=== PATIENT | female | born 1960 | race Caucasian/White ===

== ENCOUNTER 2025-07-14 23:29 | Inpatient (IN) | payer MEDICARE, SELFPAY ==
[2025-07-14 19:02] VITALS: BP 179/82
[2025-07-14 19:29] LABS: Hematocrit 38.5 % (37.0-47.0); Hemoglobin 13.0 g/dL (12.0-16.0); Mean Corp Hgb Conc. 33.8 g/dL (33.0-37.0); Mean Corpuscular Volume 94.8 fL (81.0-99.0); Nucleated Red Blood Cells % 0 %; Platelet Count 225 10^3/uL (130-400); Red Cell Dist. Width 12.0 % (11.5-14.5)
[2025-07-14 19:59] LABS: ALT (SGPT) 20 U/L (0-35); AST (SGOT) 19 U/L (14-36); Albumin 4.0 g/dl (3.5-5.0); Alkaline Phosphatase 79 U/L (38-126); Blood Urea Nitrogen 41 mg/dl (7-17); Calcium 9.3 mg/dl (8.4-10.2); Carbon Dioxide 26 mmol/L (22-30); Chloride 98 mmol/L (98-107); Glucose 520 mg/dl (70-99); Potassium 4.8 mmol/L (3.5-5.1); Sodium 128 mmol/L (135-145); Total Protein 7.1 g/dl (6.3-8.2); eGFR 49.92
--- NOTE | 2025-07-14 20:37 | ED.GENMED ---
History of Present Illness
General
Chief Complaint: Skin Problem
Source: patient
Exam Limitations: none
Time Seen by Provider: 07/14/25 20:19
History of Present Illness
History of Present Illness:
See MDM
Past History
Past History
ED Past Medical History: CVA, HTN, IDDM (hasn't taken insulin during the past 2-3 weeks), Other (s/p amputation of toes on left foot) and Other (orthostatic hypotension, diabetic retinopathy, Syncope, Osteomuyelitis R foot,)
ED Past Surgical History: Cholecystectomy and Orthopedic (left toe's amp)
Social History
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
Alcohol: None
Drug: None
Personal: Single
Living: alone
Employment: Not employed
Family History
Family History: Diabetes and CAD
Phy Exam
Physical Exam
Physical Exam:
See MDM
Course
Orders/Labs/Results
Orders:
Orders
07/14/25 19:06
CR Foot - Right Min 3 Views Urgent
Comment:
Reason For Exam: wound
07/14/25 19:19
Complete Blood Count/With Diff Urgent
Comprehensive Metabolic Panel Urgent
Lactic Acid Urgent
Blood Culture Urgent
CORINA Source: Blood/Venous
Specimen Description:
Date Specimen was Collected: 07/14/25
Time Specimen was Collected: 19:09
07/14/25 20:32
0.9% Sodium Chloride 1000 ml [Nss] 1,000 ml IV BOLUS
Insulin Aspart [NOVOLOG vial] 10 units SC NOW STA
Piperacillin/Tazo 3.375 Gram [Zosyn] 3.375 gram in 50 ml IV NOW
07/14/25 20:36
US Periph Venous LOWER Ext RT Urgent
Comment:
Reason For Exam: R leg swelling and pain
07/14/25 21:12
Vancomycin [Vancocin] 1,500 mg 0.9% Sodium Chloride 500 ml [Nss] 500 ml IV NOW
Abnormal Lab Results
07/14/25
19:19
RBC 4.06 L 10^6/uL
(4.20-5.40)
MCH 32.0 H pg
(27.0-31.0)
MPV 11.2 H fL
(7.4-10.4)
Sodium 128 L mmol/L
(135-145)
BUN 41 H mg/dl
(7-17)
Creatinine 1.2 H mg/dL
(0.6-1.0)
Glucose 520 H* mg/dl
(70-99)
07/14/25 19:19
07/14/25 19:19
Vital Signs
Initial and Last Documented VS:
Initial Vital Signs
Temp Pulse Resp BP Pulse Ox
98.0 F 88 20 179/82 98
07/14/25 19:02 07/14/25 19:02 07/14/25 19:02 07/14/25 19:02 07/14/25 19:02
Last Documented Vital Signs
Temp Pulse Resp BP Pulse Ox
98.0 F 88 20 179/82 98
07/14/25 19:02 07/14/25 19:02 07/14/25 19:02 07/14/25 19:02 07/14/25 20:40
MDM/Problems Addressed
Differential Diagnosis Includes:
Note:
CHIEF COMPLAINT(S)
High blood sugar and leg ulcer.
HISTORY OF PRESENT ILLNESS
The patient is a 64-year-old female with a history of diabetes, presenting with notably high blood sugar (reported at 520 mg/dL) and a foot ulcer, suspected to be a diabetic ulcer. The patient discontinued insulin treatment last year due to
dissatisfaction with previous medical management and has not been on any diabetic medication since. She reports that the ulcer appears infected and has a distinct odor. The patient noted that she urinated frequently, attributing this to her existing
kidney disease. However, her frequent urination is likely linked to the elevated blood glucose. The patients daughter is involved in her care as a wound care nurse.
The patient expresses frustration with managing her diabetes, citing inadequate outpatient follow-up due to the absence of a primary care provider. She verbalized a preference against taking pain or any additional medication. The leg ulcer is not
currently causing pain, but it did previously before being bandaged.
The patient reported eating before the visit and experiences dehydration symptoms, which are consistent with polyuria due to hyperglycemia. Because the ulcers condition is concerning, diagnostic imaging was recommended for further evaluation,
including an X-ray to check for osteomyelitis and an ultrasound to assess for deep vein thrombosis due to observed leg swelling.
PAST MEDICAL AND SURGICAL HISTORY
Diabetes; previously managed with insulin. History of kidney disease.
CHRONIC MEDICAL CONDITIONS SIGNIFICANTLY AFFECTING CARE
Chronic conditions affecting care: Diabetes, Kidney disease.
PHYSICAL EXAM
General: Alert, no acute distress.
Skin: Warm, dry.
Head: Normocephalic, atraumatic
Neck: Appears supple, trachea midline.
Eyes, Ears, Nose, Mouth, and Throat: Dry mucous membranes
Cardiovascular: No signs of cyanosis
Respiratory: Respirations are non-labored.
Abdomen: Non-distended
Musculoskeletal: Mild edema to right calf without erythema. Right with prior inflammatory skin removed. Ulceration noted to the distal stump with mild surrounding erythema and malodor
Neurological: No focal neurological deficit observed.
Psychiatric: Cooperative, appropriate mood and affect.
PLAN
- Perform X-ray to assess for underlying bone infection (osteomyelitis).
- Conduct ultrasound to exclude deep vein thrombosis.
- Administer fluids for dehydration.
- Start intravenous antibiotics for suspected infection.
- Administer a subcutaneous dose of insulin to reduce blood glucose level.
SUMMARY OF ENCOUNTER
The patient presented with significantly elevated blood glucose and a suspected diabetic ulcer. Due to ongoing challenges in diabetes management stemming from previous inadequate outpatient follow-up and lack of primary care, the patient stopped
insulin therapy. In the emergency department, imaging and treatment for dehydration and infection were initiated. The plan aimed to stabilize acute hyperglycemia and start preliminaries for responsible ulcer management.
DISPOSITION
Recommendation for inpatient admission to initiate comprehensive diabetic management, including glucose monitoring, insulin therapy optimization, access to necessary diabetic supplies, and consultation with podiatry as needed. The patient was
advised that outpatient discharge could jeopardize ulcer healing and further compromise diabetic control.
EMERGENCY TREATMENTS ADMINISTERED
Subcutaneous insulin was offered for management of hyperglycemia.
MEDICAL DECISION MAKING
- Complexity of Data Reviewed: Chronic conditions affecting care include diabetes and kidney disease.
- Data:
- Category 1:
- X-ray ordered to assess for osteomyelitis.
- Ultrasound ordered to exclude deep vein thrombosis.
- Subcutaneous insulin to manage hyperglycemia.
- Category 2:
- Input from patient�s daughter, who assists with wound care.
- Category 3:
- Discussion included potential inpatient management for optimal diabetic control and wound management.
-Risk:
Prescription medication management and therapy (subcutaneous insulin) initiated requiring monitoring for adjustment and efficacy.
DIAGNOSIS
- Hyperglycemia, much elevated, long-term insulin dependent E11.65
- Diabetic ulcer of the leg, unspecified E11.622
- Chronic kidney disease, unspecified N18.9
SUMMARY OF ENCOUNTER
The patient, a 64-year-old female with a known history of diabetes and chronic kidney disease, presented to the emergency department with an infected leg ulcer and significantly elevated blood sugar levels. The ulcer was suspected to be a diabetic
ulcer, and the patient had not been on any diabetic medication since discontinuing insulin the previous year. In the emergency department, imaging was conducted to assess the potential for concurrent complications associated with the ulcer. An X-ray
was performed, showing no evidence of osteomyelitis. An ultrasound was conducted to assess for deep vein thrombosis, which returned negative. Due to the concerning nature of the ulcer, IV antibiotics were initiated alongside rehydration efforts and
administration of subcutaneous insulin to manage the patients hyperglycemia.
DISPOSITION
Recommendation for inpatient admission to enhance comprehensive diabetic management, optimize glucose monitoring, resume insulin therapy, and provide access to essential diabetic supplies and consult with a parking ramp attendant for ulcer management.
ASSESSMENT
The patients leg ulcer is suspected to be a diabetic ulcer potentially exacerbated by uncontrolled blood sugar levels. Current imaging rules out osteomyelitis and deep vein thrombosis, but the infection requires antibiotic treatment and careful
wound care management.
EMERGENCY TREATMENTS ADMINISTERED
Intravenous antibiotics were initiated for ulcer infection and a subcutaneous dose of insulin was administered to decrease elevated blood glucose levels.
PLAN
The plan includes admission for comprehensive diabetic management, administration of intravenous antibiotics, wound care consultation, and continued evaluation of the diabetic ulcers progress. Ensuring the patient receives adequate diabetes
education and access to necessary supplies is also part of the management strategy.
INDEPENDENT REVIEW OF LABS AND INTERPRETATION OF TESTS
- My independent interpretation of the X-ray indicates no evidence of osteomyelitis.
- My independent interpretation of the ultrasound shows a negative result for deep vein thrombosis.
PATIENT EDUCATION AND COUNSELING
The patient was educated on the importance of maintaining blood glucose levels and the role of diabetes in complicating healing of ulcers. Discussed the necessity of consistent follow-up and management of diabetes for long-term health, as well as
wound care techniques to support ulcer healing.
MEDICATION RECONCILIATION
Initiated intravenous antibiotics for infection management and administered a subcutaneous dose of insulin for hyperglycemia.
MEDICAL DECISION MAKING
-Number and Complexity of Problems Addressed: Chronic conditions affecting care include diabetes and kidney disease. The differential diagnosis considered was diabetic foot ulcer complicated by potential osteomyelitis and/or deep vein thrombosis,
both of which were ruled out by imaging.
-Data:
- Category 1:
- X-ray was ordered and independently interpreted to assess for osteomyelitis.
- Ultrasound was ordered and independently interpreted to exclude deep vein thrombosis.
- Category 2:
- Input from the patients daughter, a wound care nurse, was considered in planning the appropriate care.
- Category 3:
- Discussion of potential inpatient management for optimal control of the patients diabetes and wound care considerations.
-Risk: Prescription medication management was initiated and requires monitoring to adjust therapy suitably and assess treatment efficacy. Given the patients current health status and comorbid conditions, decisions regarding diagnostic testing and
treatment strategies have been made with attention to potential risks and benefits.
DIAGNOSIS
- Hyperglycemia, long-term insulin dependent (ICD-10: E11.65)
- Diabetic ulcer of the leg, unspecified (ICD-10: E11.622)
- Chronic kidney disease, unspecified (ICD-10: N18.9)
*Pulse Oximetry
SaO2: 98
Oxygen Mode of Delivery: Room air
Patient hypoxic: no
*Critical Care Note
Total Time (30-74mins, 75-104mins- exclusive of procedures): Not Applicable
ED Attending Note
-
Portions of this chart may have been created with voice recognition software.� Occasional wrong word or��sound alike� substitutions may have occurred due to the inherent limitations of voice recognition software.
Discharge Plan
Departure
Patient Disposition: Admit
Date of Disposition: 07/14/25
Time of Disposition: 22:48
Admit to: Med/Surg
Presentation/result/management discussed w/ accepting MD/DO: Hospitalist
Discharge Problem:
Diabetic foot ulcer, Acute hyperglycemia
Prescriptions:
No Action
lisinopril 2.5 MG tablet
2.5 mg PO DAILY@1600
insulin aspart U-100 [Novolog U-100 Insulin aspart] 1,000 UNITS/10 ML solution
0 units SC .SLIDING SCALE
Patient Comments:
11/23/17 with meals and a snack as needed
coenzyme F05-oqdaohb E [Co Q-10 (with Vit E)] 1 EACH capsule
1 ea PO DAILY@1600
ascorbic qlya-wkfixzao-ofu [Emergen-C] 1,000 MG powder effervescent in packet
1,000 mg PO DAILY
C,E,copper,zinc 63-ab0-ctr-landon 1 CAP capsule
1 cap PO DAILY
insulin aspart U-100 [Novolog FlexPen U-100 Insulin] 300 UNITS/3 ML insulin pen
5 units SC AC 0RF
Lactobac 2-Bifido 1-S. therm [High Potency Probiotic] 1 CAP capsule
1 cap PO DAILY 0RF
amoxicillin-pot clavulanate 1 TABLET tablet
1 tab PO Q12 Qty: 10 0RF
insulin glargine [Lantus U-100 Insulin] 100 UNITS/1 ML solution
12 units SC HS Qty: 0 0RF
Eliquis 5 mg tablet
10 mg PO DAILY Qty: 30 0RF
Rx Instructions:
Take 10mg BID for 7 days then followed by 5mg BID
Referrals:
NONE,* [Family Provider, Internal Medicine]
Interventions
Interventions:
*Risk Screen - Suicide Last Done: 07/14/25 20:32
*General Assessment Last Done: 07/14/25 19:02
*Neglect/Abuse Screening Last Done: 07/14/25 20:32
*ED- Fall Risk Assessment Last Done: 07/14/25 20:32
*ED COVID-19 Vaccine History Last Done: 07/14/25 20:32
*ED Influenza Vaccine History Last Done: 07/14/25 20:32
ED-Skin Assessment Last Done: 07/14/25 20:26
Discharge Date and Time
Print Language: MOSOTHO
[2025-07-14] MEDS: NSS 1000 IV (20:55)
[2025-07-14] MEDS: ZOSYN 50 IV (20:55)
[2025-07-14] MEDS: NOVOLOG vial 10 UNITS SC (20:56)
[2025-07-14] MEDS: VANCOCIN 530 MG IV (22:03)
--- NOTE | 2025-07-14 22:40 | HPS.HSE ---
Family Physician
-
Family Physician: * NONE
Chief Complaint
-
right foot wound
History of Present Illness
64-year-old female with a history of diabetes, CVA, CKD presenting with right foot ulcer which she noted few days ago. patient stated worsening redness and LE edema which prompted her to come to the ER. patient stopped taking insulin and all her
medication last year. she controlling her blood sugar with diet. She reports that the ulcer appears infected and has a distinct odor. She has also has a wound on her left lower extremity Rodríguez. patient sated chronic stress incontinence. denied HILARIO,
dizzy or syncope. Patient denied any fever, chills, cough, congestion. Patient denied chest pain or short of breath. Patient denied abdominal pain, nausea, vomiting or diarrhea. Patient denied dysuria hematuria.
Upon arrival she was noted to have elevated blood sugar. Patient received 10 units of NovoLog. Patient received normal saline, Zosyn and Vanco in the ER. Admitting for further
Medical History
Past Medical History
Past Medical History: Reports Other
Additional Past Medical History:
Type 2 diabetes, CKD, venous insufficiency, posttraumatic stress disorder, CVA,
Past Surgical History: Reports Other
Additional Past Surgical History:
Bilateral partial foot amputation, cholecystectomy
Social History
Tobacco: Former Smoker
Alcohol: None
Drug: None
Living: Alone
Family History
Family History: Not pertinent
Allergies / Home Medications
Allergies reflects when Allergies were last updated in [facility].
Home Medications with original date entered in [facility]
Allergy/Medication List:
Allergies
Allergy/AdvReac Type Severity Reaction Status Date / Time
latex Allergy Rash/SENSIT Verified 07/14/25 19:02
IVITY
Home Medications
lisinopril 2.5 mg tablet 2.5 mg PO DAILY@1600 07/01/16
ascorbic acid 1,000 gs-uqmdpryvierc-dbxnxvil powder effervescent pack (Emergen-C) 1,000 mg PO DAILY 11/23/17
coenzyme X01-btwfxzu E 100 mg-5 unit capsule (Co Q-10 (with Vit E)) 1 ea PO DAILY@1600 11/23/17
insulin aspart U-100 100 unit/mL subcutaneous solution (Novolog U-100 Insulin aspart) 0 units SC .SLIDING SCALE 11/23/17
vit C,E,copper,zinc-omega3 250 mg-lutein 5 mg-zeaxanthin 1 mg capsule 1 cap PO DAILY 12/07/17
Lactobac no.2-Bifidobac no.1-S. thermo 112.5 billion cell capsule (High Potency Probiotic) 1 cap PO DAILY 12/14/17
amoxicillin 875 mg-potassium clavulanate 125 mg tablet 1 tab PO Q12 #10 tabs 12/14/17
insulin aspart U-100 100 unit/mL (3 mL) subcutaneous pen (Novolog FlexPen U-100 Insulin aspart) 5 units (0.05 mL) SC AC 12/14/17
insulin glargine 100 unit/mL subcutaneous solution (Lantus U-100 Insulin) 12 units (0.12 mL) SC HS ##0 12/14/17
apixaban 5 mg tablet (Eliquis) 10 mg (2 x 5 mg) PO DAILY #30 tabs 08/29/22
Review of Systems
-
Constitutional: Reports No Symptoms
EENT: Reports No Symptoms
Respiratory: Reports No Symptoms
Cardiac: Reports No Symptoms
Abdomen/GI: Reports No Symptoms
: Reports No Symptoms
Musculoskeletal: Reports No Symptoms
Skin: Reports Other
Neurological: Reports No Symptoms
Endocrine: Reports No Symptoms
Hematologic/Lymphatic: Reports No Symptoms
Psych: Reports No Symptoms
Physical Exam
Vital Signs
Vital Signs
Temp Pulse Resp BP Pulse Ox
98.0 F 88 20 179/82 98
07/14/25 19:02 07/14/25 19:02 07/14/25 19:02 07/14/25 19:02 07/14/25 20:40
Physical Exam
General: Well Developed, Well Nourished and No Apparent Distress
HEENT: NormoCephalic, Moist mucous membranes and Atraumatic
Respiratory: Clear
Cardiac: S1/S2 and Regular Rhythm; No Murmur or Rub
GI: Soft, Non Tender, Non Distended and Normal Bowel Sounds; No Organomegaly
Rectal: Deferred by Provider
Musculoskeletal: No Clubbing, No Cyanosis and No Edema
Skin: Rash and Other (Mild edema to right calf without erythema. Right with prior inflammatory skin removed. Ulceration noted to the distal stump with mild surrounding erythema and malodor)
Neuro: AO x 3 and Nonfocal/grossly intact
Psych: Calm
Laboratory Results
-
07/14/25 19:19
07/14/25 19:19
Laboratory Results
Lactic Acid 1.2 mmol/L (0.7-2.0) 07/14/25 19:19
Total Bilirubin 0.5 mg/dl (0.2-1.3) 07/14/25 19:19
AST 19 U/L (14-36) 07/14/25 19:19
ALT 20 U/L (0-35) 07/14/25 19:19
Alkaline Phosphatase 79 U/L (38-126) 07/14/25 19:19
Data Reviewed
-
Diagnostic Radiology: Report Reviewed by me
Lab Data: Labs Reviewed by me
Impression/Plan
-
# Type 2 diabetes with hyperglycemia
- Blood sugar in 500
- Patient received 10 units of NovoLog in the ER
- Will initiate patient on Lantus
- Sliding scale
- Diabetic DRUM DRIER consulted
# Right foot ulcer/left lower extremities wound
#hxt of bilateral foot amputation/osteomyelitis.
- Ultrasound negative for DVT
- Foot x-ray with no acute finding
- Obtain MRI of the right foot
- IV Vanco and Zosyn continue
- Podiatric consulted
-wound care consulted
# Pseudohyponatremia
- Corrected sodium is 138
# CKD stage IIIb
- Creatinine 1.2
- Continue to monitor
# History of DVT
#hxt of CVA
#hxt of depression/PTSD
-psych consulted
# DVT prophylaxis
- Heparin subcu
# CODE STATUS
- Full code
--- NOTE | 2025-07-14 22:41 | W.PN.UPDATE ---
Update Note
Progress Note Update
This note serves as an addendum to the H&P by continuous miner operator Sarthak MORRIS�
HPI�
64F HX IDDM ( Non compliance with insulin) diabetic retinopathy, PAD, s/p Lt foot TMT amputation ( 2018) orthostatic hypotension, syncope, Rt foot OM seen at ER:
- pain in the R foot especially ball of the foot
- POS redness and increased swelling
- new wound reported to the foot
At ER:
BG 590s
Initiated Vanco and Zosyn
BCx sent
Relevant VS
07/14/25
19:02
Temp 98.0 F
Temp route: Oral
Pulse 88
Resp Rate 20
Blood pressure 179/82
SaO2 98
Oxygen Mode of Delivery Room air
PE
Gen: not toxic
HEENT: anicteric
Neck: supple
Cor: RR
INSTRUMENTATION MANAGER: AAO3
MS: B/l foot TMTs , Rt fore foot ulcer
Psych: emotional and teary at times
Relevant Data
03/20/23 07/14/25
11:16 19:19
WBC 7.1
Hgb 13.1 13.0
Plt Count 225
07/14/25
19:19
Sodium 128 L( corrected Na 135 for BG 520)
Potassium 4.8
Chloride 98
Carbon Dioxide 26
BUN 41 H
Creatinine 1.2 H
eGFR 49.92
Glucose 520 H*
XR R Foot
- In comparison to prior study, the patient is again noted to be status post amputation at the base of the metatarsals throughout, predominantly smooth appearance at the amputation sites with some spurring noted at several levels.
- Degenerative changes throughout the tarsal region.
- There is no discrete focal cortical bony destructive process.
- Some mild predominantly diffuse soft tissue swelling is noted.
Rt David US
- No evidence of deep venous thrombosis of the right lower extremity.
Last hospitalist admission:
ASSESSMENT & PLAN
Pending Rx reconciliation: report not taking any meds
Rt diabetic neuro pathic foot infection
- s/p Lt foot TMT amputee
- open wound / ulcers at R foot x 3
- NEG XR evidence of discrete focal cortical bony destructive process
- NEG US for DVT
- CRP and ESR
- BCx sent
- MRI R foot
- s/p empiric Vanco and Zosyn
- MRI of Rt foot
- Pharmacy Informatics Specialist consulted
Uncontrol IDDM
- Non adherence to Insulin
- Resume Lantus 12 HS
- add ISS mod dose
- FU A1C
Non adherence to Medications
Associated situational depression
Occasional thinking of better of not living but denitd current suicidal ideation
HX PTSD
- Psych consult
HX CKD - uncertain stage
- Trend Cr
HX DVT treated with Eliquis in the past
DVT Px: SQH
Full code
IP MS
[2025-07-14 23:42] LABS: C-Reactive Protein < 5.00 mg/L (0.0-10.00)
[2025-07-15 00:50] VITALS: BP 154/120; BMI 30.7
[2025-07-15 01:00] VITALS: BP 170/74
--- NOTE | 2025-07-15 01:26 | PTCARENOTE ---
Pt arrived from ED by stretcher. Able to ambulate to hospital bed and bedside commode with a walker. Alert and oriented x 3. Vitals were taken, BP 154/120. Manual BP was a taken, 170/74. House Provider TT and made aware. Call salazar within reach. Will
monitor.
[2025-07-15] MEDS: ZOSYN 50 IV ×4 (04:11→22:29)
[2025-07-15] MEDS: TYLENOL 650 MG PO ×2 (05:02→20:20)
[2025-07-15 07:00] VITALS: BP 121/57
[2025-07-15 07:35] LABS: Hematocrit 33.3 % (37.0-47.0); Hemoglobin 11.2 g/dL (12.0-16.0); Mean Corp Hgb Conc. 33.6 g/dL (33.0-37.0); Mean Corpuscular Volume 92.0 fL (81.0-99.0); Platelet Count 194 10^3/uL (130-400); Red Cell Dist. Width 12.3 % (11.5-14.5)
[2025-07-15 07:40] LABS: Glucose - Point of Care 226 mg/dl (70-99)
[2025-07-15 07:58] LABS: Blood Urea Nitrogen 35 mg/dl (7-17); Calcium 8.6 mg/dl (8.4-10.2); Carbon Dioxide 23 mmol/L (22-30); Chloride 107 mmol/L (98-107); Estimated Creatinine Clearance 51 ml/min; Glucose 239 mg/dl (70-99); Potassium 4.4 mmol/L (3.5-5.1); Sodium 136 mmol/L (135-145); eGFR 49.92
--- NOTE | 2025-07-15 08:02 | PHA.VAN.IN ---
Assessment
- Assessment
Renal Function: Appears similar to baseline (1.2)
Maximum Temperature: 101.1
Minimum Temperature: 97.9
Concomitant Antimicrobials: piperacillin/tazobactam
- Previous Dosing Experience
Previous Regimen: vancomycin 1000 mg Q24H
Date of Regimen: 12/07/17
Provided Trough of: 13
Patient's SCR is: Similar to previous dosing experience
Patient's weight is: Decreased compared to previous dosing experience (128 kg (12.09.2017))
Plan
- Plan
Initial / Loading Dose: vancomycin 1500 mg x 1
Maintenance Regimen: dose by level vancomycin 1250 mg x 1 on 07.15.25
Monitoring: random level ordered for 07.16 @ 0600
MRSA Screen: Ordered per protocol
Pharmacokinetics Vancomycin I
- -
Patient Age: 64
Patient Sex: Female
Vancomycin Day #: 2
Indication: Skin And Soft Tissue
Requesting Provider: Dr. Radha Julien
Pertinent Antimicrobial Allergies:
latex
Height / Weight:
Height 5 ft 6 in
Actual Weight 86.183 kg
IBW in k.3
Adjusted BW in k.1
Pertinent Past Medical History: right foot wound
- Vital Signs / Lab Results
Temp Pulse Resp BP Pulse Ox
101.1 F H 87 87 170/74 97
07/15/25 05:00 07/15/25 00:50 07/15/25 00:50 07/15/25 01:00 07/15/25 00:50
Lab Results - Hematology
07/14/25 07/15/25
19:19 06:48
WBC 7.1 10.2
Lab Results - Chemistry
07/14/25 07/15/25
19:19 06:48
BUN 41 H 35 H
Creatinine 1.2 H 1.2 H
Estimated Creat Clear 51
Albumin 4.0
07/14/25
19:19
Lactic Acid 1.2
[2025-07-15] MEDS: HEPARIN 5000 UNITS SC ×2 (08:38→20:19)
[2025-07-15] MEDS: NOVOLOG FLEXPEN-MODERATE RESISTANCE 3 UNITS SC (08:38)
[2025-07-15] MEDS: VANCOCIN 275 MG IV (08:39)
[2025-07-15 09:40] LABS: Glycohemoglobin (HgbA1c) 14.6 % (4.0-5.9)
[2025-07-15 11:50] LABS: Glucose - Point of Care 351 mg/dl (70-99)
--- NOTE | 2025-07-15 12:24 | W.PN.UPDATE ---
Addendum entered and electronically signed by Obey Witt DPM 07/15/25 12:35:
64F presents with diabetic foot wounds to subq, no acute clinical signs of infection
- wbat
- no abx
- elevate b/l LE when at rest, with heels in floating position
- LWC rendered betadine dsd
- recommend wound care every other day betadine dsd RLE
- discussed with patience of following health care recommendations and compliance with medications
- podiatry will sign off at this time
Original Note:
Update Note
Progress Note Update
64F presents with diabetic foot wounds to subq, no acute clinical signs of infection
- wbat
- no abx
- elevate b/l LE when at rest, with heels in floating position
- LWC rendered betadine dsd
- recommend wound care every other day betadine dsd RLE
- podiatry will sign off at this time
[2025-07-15] MEDS: NOVOLOG FLEXPEN-MODERATE RESISTANCE 9 UNITS SC ×2 (12:27→16:36)
--- NOTE | 2025-07-15 14:07 | CM ---
Initial assessment completed with patient who lives alone in a 2nd floor apartment in a 2 story house plus basement, 13 steps to enter apartment. 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 Uses a RW when out of the home. Furniture surfs
in the home. No other DME. No in-home services. No HC-POA. No VA benefits. No psychiatric hospitalizations in past 2 years. Did have one in 1987 for PTSD and eating disorder. Does not have a PCP. When asked who manages her IDDM. She said she
tries to do holistic methods. Pharmacy is [facility] on [address] in [place]. Discharge POC: TBD.
--- NOTE | 2025-07-15 14:10 | W.PN.HOSP.TC ---
Today's Communication/Plan
-
Assessment / Plan
Assessment / Plan
NAD
Scleral Anicteric
MMM
No JVD
CTABL
RRR, S1/S2
Soft, NT, ND, BS+
Warm, Dry
Bilateral lower extremity TMA's
-Right foot dressed
AAOx3
Right foot distal TMA ulcer secondary to noncompliant diabetes type 2
MRI right lower extremity though ESR/crp low therfore, less likely osteo
IV fluids
IV Atb
Insulin long and short
Tight sugar control
Pod consult
DMII uncontrolled, noncomplaint
a1c
ssi
long and short acting insulin
bg 140-180
diabetes consult
ccdiet
microalbuminuria
-will start acei low dose
ckd stage 3a
start renoprotective acei low dose
monitor uop
Anticipated Discharge: 24 - 48 hours
Subjective/Interval History
-
Date of Service: July 15, 2025
Seen and examined. No new complaints. No acute overnight events.
Objective Data
-
Labs:
Laboratory Results
07/15/25
06:48
WBC 10.2
Hgb 11.2 L
Hct 33.3 L
Plt Count 194
Sodium 136 D
Potassium 4.4
Chloride 107
Carbon Dioxide 23
BUN 35 H
Creatinine 1.2 H
Glucose 239 H
Calcium 8.6
Vital Signs:
Vital Signs
Temp Pulse Resp BP Pulse Ox
97.6 F 91 16 121/57 95
07/15/25 10:20 07/15/25 07:00 07/15/25 07:00 07/15/25 07:00 07/15/25 07:00
--- NOTE | 2025-07-15 14:36 | PTCARENOTE ---
Pt with ble metatarsal amputations. She lives independently at baseline and states she uses furniture and walker without any recent falls . I watched her get around at the room with IV pole, to bedside commode, bed and chair. I did ask her to call
for staff to assist her. I educated her on importance of fall precautions and having one assist while in hospital only. and she still does not call. I did put a bed alarm on her bed and explained it was more for us to be alerted quicker to assist
her. she understood and verbally contracted to call for nurses first. Pt explained to me that she went off her DM management because she just needed a mental break. she was burnt out. She was lookingforward to her hga1c results hoping it would
show good numbers despite her BS from er. I did tell her it was > 14 she was not happy with this number but she faced it and did verbalize to me she is looking forward to getting her next hga1c down. she is also looking forward to taking better
care of her self and diabetic management
[2025-07-15 15:10] VITALS: BP 133/52
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
[2025-07-15 16:33] LABS: Glucose - Point of Care 391 mg/dl (70-99)
[2025-07-15] MEDS: ZESTRIL 2.5 MG PO (16:36)
[2025-07-15] MEDS: NOVOLOG FLEXPEN 5 UNITS SC (16:37)
[2025-07-15 21:22] LABS: Glucose - Point of Care 289 mg/dl (70-99)
[2025-07-15] MEDS: LANTUS 0.12 UNITS SC (22:29)
[2025-07-15 23:19] VITALS: BP 145/65
[2025-07-16] MEDS: ZOSYN 50 IV ×2 (03:49→09:39)
[2025-07-16 07:00] VITALS: BP 174/85
[2025-07-16 07:48] LABS: Glucose - Point of Care 210 mg/dl (70-99)
[2025-07-16 08:29] LABS: Hematocrit 36.5 % (37.0-47.0); Hemoglobin 12.5 g/dL (12.0-16.0); Mean Corp Hgb Conc. 34.2 g/dL (33.0-37.0); Mean Corpuscular Volume 93.8 fL (81.0-99.0); Platelet Count 212 10^3/uL (130-400); Red Cell Dist. Width 12.6 % (11.5-14.5)
[2025-07-16 08:53] LABS: Blood Urea Nitrogen 30 mg/dl (7-17); Calcium 9.1 mg/dl (8.4-10.2); Carbon Dioxide 26 mmol/L (22-30); Chloride 108 mmol/L (98-107); Estimated Creatinine Clearance 47 ml/min; Glucose 233 mg/dl (70-99); Potassium 4.5 mmol/L (3.5-5.1); Sodium 138 mmol/L (135-145); eGFR 45.35
[2025-07-16] MEDS: ZESTRIL 2.5 MG PO (09:38)
[2025-07-16] MEDS: NOVOLOG FLEXPEN-MODERATE RESISTANCE 3 UNITS SC (09:39)
[2025-07-16] MEDS: HEPARIN 5000 UNITS SC ×2 (09:39→22:04)
[2025-07-16] MEDS: NOVOLOG FLEXPEN 5 UNITS SC ×3 (09:41→17:38)
--- NOTE | 2025-07-16 11:35 | W.PN.HOSP.TC ---
Today's Communication/Plan
-
Wound care
Diabetes consultants
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
Assessment / Plan
Assessment / Plan
NAD
Scleral Anicteric
MMM
No JVD
CTABL
RRR, S1/S2
Soft, NT, ND, BS+
Warm, Dry
Bilateral lower extremity TMA's
-Right foot dressed
AAOx3
Right foot distal TMA ulcer secondary to noncompliant diabetes type 2
ESR/CRP low therefore low pretest probability for osteo
MRI right lower extremity without evidence of osteo
IV fluids
IV Atb will discontinue
Insulin long and short
Tight sugar control
Pod no indication for surgical involvement
Wound care consult
DMII uncontrolled, noncomplaint
a1c
ssi
increased Lantus started standing lispro
bg 140-180
diabetes consult
ccdiet
microalbuminuria
-will start acei low dose, can titrate up as tolerated
ckd stage 3a
start renoprotective acei low dose
monitor uop
Anticipated Discharge: Within 24 hours
Subjective/Interval History
-
Date of Service: July 16, 2025
Seen and examined. No new complaints. No acute overnight events.
Objective Data
-
Labs:
Laboratory Results
07/16/25
07:48
WBC 5.8
Hgb 12.5
Hct 36.5 L
Plt Count 212
Sodium 138
Potassium 4.5
Chloride 108 H
Carbon Dioxide 26
BUN 30 H
Creatinine 1.3 H
Glucose 233 H
Calcium 9.1
Vital Signs:
Vital Signs
Temp Pulse Resp BP Pulse Ox
98.4 F 76 18 174/85 95
07/16/25 07:00 07/16/25 07:00 07/16/25 07:00 07/16/25 07:00 07/16/25 07:00
[2025-07-16 11:50] VITALS: BP 169/81; PULSE 75; O2SAT 98
[2025-07-16 12:15] LABS: Glucose - Point of Care 284 mg/dl (70-99)
[2025-07-16 12:44] VITALS: BP 169/81; PULSE 75; O2SAT 98
[2025-07-16] MEDS: NOVOLOG FLEXPEN-MODERATE RESISTANCE 5 UNITS SC (12:46)
[2025-07-16 12:55] VITALS: BP 175/81
[2025-07-16] MEDS: ZESTRIL 5 MG PO (14:51)
[2025-07-16 15:00] VITALS: BP 105/65
--- NOTE | 2025-07-16 16:39 | PTCARENOTE ---
PT oob ambulating in hallways with one assist walker. PT independently ambulating in room on and off bedside commode with walker and has sneakers on. Pt steady. SBP > 170 x2 even with lisinopril. MD made aware and x dose ordered and given. BP now
improved. Pt in good spirits asking how she can incorporate alternative styles of medicine with MD prescriptions. She specifically wanted my opinion on how taking beet tablets would assist with her BP. I explained she should always follow
recommendations by her medical doctor and ensure compatibility. After she partners with her primary care doctor and oks her alternative therapy she could get a home BP machine, log her BPs and activities and share outcomes with her medical doctor
so that together they could make decisions. She agreed it is tong to partner with her physicians to incorporate alternative types of medicinal therapies. PT watching [place] game and enjoying her self
[2025-07-16 16:50] LABS: Glucose - Point of Care 159 mg/dl (70-99)
[2025-07-16] MEDS: NOVOLOG FLEXPEN-MODERATE RESISTANCE 1 UNITS SC (17:38)
[2025-07-16 21:50] LABS: Glucose - Point of Care 190 mg/dl (70-99)
[2025-07-16] MEDS: LANTUS 0.15 UNITS SC (22:05)
[2025-07-16] MEDS: TYLENOL 650 MG PO (22:17)
[2025-07-16 23:10] VITALS: BP 143/68
[2025-07-17 06:00] VITALS: BMI 31.2
[2025-07-17 06:54] LABS: Hematocrit 34.9 % (37.0-47.0); Hemoglobin 11.5 g/dL (12.0-16.0); Mean Corp Hgb Conc. 33.0 g/dL (33.0-37.0); Mean Corpuscular Volume 96.1 fL (81.0-99.0); Platelet Count 193 10^3/uL (130-400); Red Cell Dist. Width 12.6 % (11.5-14.5)
[2025-07-17 07:00] VITALS: BP 166/75
[2025-07-17 07:12] LABS: Blood Urea Nitrogen 32 mg/dl (7-17); Calcium 8.8 mg/dl (8.4-10.2); Carbon Dioxide 25 mmol/L (22-30); Chloride 110 mmol/L (98-107); Estimated Creatinine Clearance 62 ml/min; Glucose 166 mg/dl (70-99); Potassium 4.3 mmol/L (3.5-5.1); Sodium 134 mmol/L (135-145); eGFR > 60.00
--- NOTE | 2025-07-17 07:21 | PN.DE.MGMTRT ---
Addendum entered and electronically signed by NATHANIEL Sherwood 07/17/25 13:21:
Pre-lunch glucose is 277, pt received NovoLog 8 units with breakfast.
Will increase NovoLog to 10 units AC.
Original Note:
Insulin Management
- -
07/17/2025: Diabetes Management Consult
64 year old female who presented with a right foot ulcer. States she controlling her blood sugar with diet.
She reports that the ulcer appears infected and has a distinct odor. She has also has a wound on her left lower extremity Rodríguez
PMH: CVA, CKD and T2DM. Patient states she stopped taking insulin and all her medication last year.
Upon arrival she was noted for elevated glucose with a blood sugar of 520 venous. A1C 14.6%, Cr 1.0, eGFR >60.
She was started on Lantus and AC NovoLog.
Pt awake, alert, oriented, sitting up in bed, able to discuss diabetes care plan.
States she stopped taking her insulin last year in March, thought she would control her diabetes with diet
Had been taking Lantus 12-20 units @ HS and NovoLog 20-25 units with meals depending on what she ate.
States she has a glucose meter but does not remember if she still has it. Will send Rx to her pharmacy
07/16 glucose range was 159 to 284, required 1-3 units of corrective insulin
Will increase NovoLog to 8 units, 1st dose now.
HS glucose was 190, received Lantus 15 units, fasting 166 V, 162 POC.
Will cont current dose of Lantus and low corrective with meals.
Change diet from 2200 leyla to 1800 leyla
Discussed with Nurse. Will cont to follow
Diabetes History
- -
Type of Diabetes: 2 requiring insulin
Pre-Admission Diabetes Regimen
07/16/25 07/17/25
07:48 06:29
Creatinine 1.3 H 1.0
Lab Results
Hemoglobin A1c 14.6 % (4.0-5.9) H 10/25/25 06:48
Insulin Pump Settings
IP Diabetes Regimen
07/16/25 07/16/25 07/16/25
07:46 07:48 12:14
Glucose 233 H
POC Glucose 210 H 284 H
07/16/25 07/16/25 07/17/25
16:49 21:48 06:29
Glucose 166 H
POC Glucose 159 H 190 H
Meal type: Dinner
Meal type: Lunch
Meal type: Breakfast
Amount consumed: 100%
Amount consumed: 100%
Amount consumed: 100%
Patient Education
[2025-07-17 07:45] LABS: Glucose - Point of Care 162 mg/dl (70-99)
[2025-07-17] MEDS: HEPARIN 5000 UNITS SC ×2 (07:50→21:41)
[2025-07-17] MEDS: ZESTRIL 10 MG PO (07:51)
[2025-07-17 09:54] LABS: Glucose - Point of Care 166 mg/dl (70-99)
[2025-07-17] MEDS: NOVOLOG FLEXPEN 8 UNITS SC (10:02)
[2025-07-17] MEDS: NOVOLOG FLEXPEN-MODERATE RESISTANCE 1 UNITS SC (10:03)
--- NOTE | 2025-07-17 10:57 | W.PN.HOSP.TC ---
Today's Communication/Plan
-
see A/P
Assessment / Plan
Assessment / Plan
A/P:
# Right foot distal TMA ulcer/ superficial abrasion
CRP negative which essentially rules out active infection
MRI right lower extremity without evidence of osteo
Podiatry: no indication for surgical involvement
IV Antibiotic discontinued
Wound care CS
# DM II uncontrolled, non-complaint
A1C 14.6%
cover with ISS
Cont Lantus, increased to 18 units HS
Cont Aspart 8 units AC
ISS Coverage
Diabetes PLAYGROUND EQUIPMENT ERECTOR consulted for education and management
Pt was started with ACEI lisinopril for microalbuminuria, lisinopril dose adjusted to 10 mg daily
# TRISTON
ruled out CKD
TRISTON has resolved, SCr 1.3 to 1.0 today
DVT ppx: HSQ
FC
Dispo: PT recc HH
DW CM
Anticipated Discharge: Within 24 hours
Subjective/Interval History
-
Date of Service: July 17, 2025
Objective Data
-
Labs:
Laboratory Results
07/17/25
06:29
WBC 5.3
Hgb 11.5 L
Hct 34.9 L
Plt Count 193
Sodium 134 L
Potassium 4.3
Chloride 110 H
Carbon Dioxide 25
BUN 32 H
Creatinine 1.0
Glucose 166 H
Calcium 8.8
Vital Signs:
Vital Signs
Temp Pulse Resp BP Pulse Ox
36.7 C 74 18 166/75 96
07/17/25 07:00 07/17/25 07:51 07/17/25 07:00 07/17/25 07:51 07/17/25 07:00
I&O
07/16/25 07/17/25 07/18/25
06:59 06:59 06:59
Intake Total 1679
Balance 1679
Review of Systems
-
History Source: Patient
All other systems: Reviewed and negative
Physical Exam
-
General: Well Developed, Well Nourished, No Apparent Distress, Comfortable and Conversant; Negative Respiratory Distress
HEENT: Normocephalic, Atraumatic, Nose Appears Normal and Ears Appear Normal; Negative Oxygen
Respiratory: Clear to Auscultation and Non Labored Respirations; Negative Accessory Resp Muscle Use
Cardiac: Regular Rhythm and S1/S2
GI: Soft, Nontender, Nondistended and Normal Bowel Sounds
Skin: Warm and Dry
Neuro: Awake, Alert, Oriented and AO x 3
Psych: Calm and Intact Judgement/Insight
Data Reviewed
-
Labs: Labs Reviewed by me
[2025-07-17 11:44] LABS: Glucose - Point of Care 277 mg/dl (70-99)
[2025-07-17] MEDS: NOVOLOG FLEXPEN 10 UNITS SC ×2 (12:18→18:30)
[2025-07-17] MEDS: NOVOLOG FLEXPEN-MODERATE RESISTANCE 5 UNITS SC (12:19)
--- NOTE | 2025-07-17 12:39 | CM ---
Patient seen at bedside
PT rec Home health
discussed options - patient declines home health
patient given resource for residency clinic as she stated no PCP currently
requests information on getting handicapped license plate-resources/application given to patient
PLAN: Home when medically stable, declines VN
[2025-07-17 15:00] VITALS: BP 141/78
--- NOTE | 2025-07-17 15:06 | WOUNDNOTE ---
R TRANSMETATARSLAKEISHA AMP SITE
--- NOTE | 2025-07-17 15:06 | WOUNDNOTE ---
L LOWER ANTERIOR LEG
--- NOTE | 2025-07-17 15:10 | WOUNDNOTE ---
[facility] RN note: Patient admitted with diabetic foot ulcer, hyperglycemia.
See H&P for complete history. Lives by self.
PMH: ED Past Medical History: CVA, HTN, IDDM (hasn't taken insulin during the past 2-3 weeks), Other (s/p amputation of toes on left foot) and Other (orthostatic hypotension, diabetic retinopathy, Syncope, Osteomyelitis R foot, s/p amputation of
toes.
ED Past Surgical History: Cholecystectomy and Orthopedic (left toe's amp)
Social HistoryTobacco: 2nd hand smoke exposure (retired Ground [employer]or in [employer])
Wound Location and type/assessment: Patient admitted with: L lower leg abrasion, patient states she banged into something at home. Base clean, small drainage, no odor. R foot amp site with 2 small shallow ulcers, Betadine dressing in use with isabella
wrap to secure. Plantar R foot with few dry callus's. Patient states she was tired recently and wore slip on sneakers without socks, causing ulcers. Reviewed Dr. Witt's report, wound care already on order, signed off. MRI of R foot negative for
osteo. Ultrasound negative for DVT. Patient able to turn self to side, sacrum and heels are intact. Tiny scab on lateral hip from using depends at home, patient confirmed. Hgb A1c 14.6.
Appetite: Good, automation and controls supervisor on consult.
Pressure redistribution devices in place: Accumax, patient ambulates with walker, is ad case. Pillow under calves.
Plan: Dressing's changed per Podiatry order for R foot. L lower leg applied adaptic and silicone foam. Recommend both be changed q other day unless drainage. Will confirm orders with hospitalist and update nurse.
Updated care plan and will follow as needed.
Note to case management of equipment requested for discharge: none.
Recommend follow up with Electronic Assembler Group Leader as scheduled.
--- NOTE | 2025-07-17 16:29 | PTCARENOTE ---
07/17/2025 DIABETES EDUCATION CONSULT
I met with patient to review diabetes management. She is inpatient with a RLE foot wound.
She stopped taking insulin last year to manage her DM through diet and exercise. She was experiencing urinary incontinence at home, disregarded this related to her DM even though her sister (a nurse) discussed this with her. Currently, her HbA1c is
14.6%.
I educated on physiology of T2D, organ damage, managing with medications, monitoring BG, nutrition, activity, sleep and managing stress. I reinforced signs of hyperglycemia, hypoglycemia and hypoglycemia protocol; BS parameters and recommended HbA1c
goals, glucometer and CGM instructions, glucose tracker, medic alert bracelet and outpatient DSME program. Written material provided.
I provided patient with a Evermede glucometer sample kit. Provided verbal instructions on proper blood sugar testing technique, and demonstration with patient�s participation. Her BS during meeting was 117 2 hours post prandial.
She has injected insulin in the past, declined demonstration. I verbally reviewed
insulin injection technique, timing, and storage. Discussed long and short acting insulin; onset/peak/duration. Discussed normal target glucose ranges and a monitoring schedule 15 minutes before each meal when prescribed Novolog, and before
bedtime. She likes to intermittent fast, eating twice a day. Discussed that she should only take Novolog if eating a meal.
She does not have a PCP or director independent. [facility]
Encouraged patient to follow up with a PCP for post d/c appointment and to monitor medication and blood glucose levels. Provided list of endocrinologists if desired, to contact insurance company to verify in network status. She is interested
in diabetes education, took our education class 10 years ago through Medicare. I will contact her upon discharged to discuss 2 hours additional education and possible RD referral. Patient verbalized understanding.
[2025-07-17 16:41] LABS: Glucose - Point of Care 127 mg/dl (70-99)
[2025-07-17] MEDS: NOVOLOG FLEXPEN-MODERATE RESISTANCE SC (17:32)
[2025-07-17] MEDS: LANTUS 0.18 UNITS SC (21:42)
[2025-07-17 21:43] LABS: Glucose - Point of Care 223 mg/dl (70-99)
[2025-07-17 23:17] VITALS: BP 145/72
[2025-07-18 05:22] VITALS: BMI 31.3
[2025-07-18 06:41] LABS: Hematocrit 34.6 % (37.0-47.0); Hemoglobin 11.8 g/dL (12.0-16.0); Mean Corp Hgb Conc. 34.1 g/dL (33.0-37.0); Mean Corpuscular Volume 93.5 fL (81.0-99.0); Platelet Count 210 10^3/uL (130-400); Red Cell Dist. Width 12.6 % (11.5-14.5)
[2025-07-18 07:15] VITALS: BP 119/81
[2025-07-18 07:24] LABS: Blood Urea Nitrogen 37 mg/dl (7-17); Calcium 9.1 mg/dl (8.4-10.2); Carbon Dioxide 25 mmol/L (22-30); Chloride 109 mmol/L (98-107); Estimated Creatinine Clearance 52 ml/min; Glucose 164 mg/dl (70-99); Magnesium 2.1 mg/dl (1.6-2.3); Potassium 4.6 mmol/L (3.5-5.1); Sodium 134 mmol/L (135-145); eGFR 49.92
--- NOTE | 2025-07-18 08:02 | PN.DE.MGMTRT ---
Insulin Management
- -
07/18/2025: Diabetes Management Consult Follow up
Patient admitted 07/14 with a right foot ulcer, she reports that the ulcer appears infected and has a distinct odor. She has also has a wound on her left lower extremity Rodríguez. States she controlling her blood sugar with diet. PMH: HTN, CVA, CKD
and T2DM. Patient states she stopped taking insulin and all her medication last year. On admission glucose elevated 520 venous. A1C 14.6%, Cr 1.0, eGFR >60.
She was started on Lantus and AC NovoLog.
Pt awake, alert, oriented, sitting up in bed, able to discuss diabetes care plan.
States she stopped taking her insulin last year in March, thought she would control her diabetes with diet
Had been taking Lantus 12-20 units @ HS and NovoLog 20-25 units with meals depending on what she ate.
States she has a glucose meter but does not remember if she still has it. Will send Rx to her pharmacy.
Diabetes Nurse educator provided contour next meter.
07/17 glucose range was 123 to 277, required 1-5 units of corrective insulin
07/18 Fasting glucose 164. Will increase HS lantus to 20 units and increase AC NovoLog to 12 units with moderate corrective insulin.
Discussed with Nurse. Will cont to follow
Diabetes History
- -
Type of Diabetes: 2 requiring insulin
Pre-Admission Diabetes Regimen
07/18/25
06:21
Creatinine 1.2 H
Lab Results
Hemoglobin A1c 14.6 % (4.0-5.9) H 07/15/25 06:48
Insulin Pump Settings
IP Diabetes Regimen
07/17/25 07/17/25 07/17/25
09:52 11:43 16:40
Glucose
POC Glucose 166 H 277 H 127 H
07/17/25 07/18/25
21:42 06:21
Glucose 164 H
POC Glucose 223 H
Patient Education
[2025-07-18 08:05] LABS: Glucose - Point of Care 113 mg/dl (70-99)
[2025-07-18] MEDS: HEPARIN 5000 UNITS SC (08:12)
[2025-07-18] MEDS: NOVOLOG FLEXPEN-MODERATE RESISTANCE SC ×3 (08:12→17:51)
[2025-07-18] MEDS: NOVOLOG FLEXPEN 12 UNITS SC ×3 (08:14→17:52)
[2025-07-18] MEDS: NOVOLOG FLEXPEN SC (08:26)
[2025-07-18] MEDS: ZESTRIL 10 MG PO (08:30)
[2025-07-18] MEDS: ZESTRIL PO (08:34)
--- NOTE | 2025-07-18 10:13 | W.PN.HOSP.TC ---
Addendum entered and electronically signed by Jade Vilchis MD 07/18/25 10:28:
Correction:
Continue Lantus 18 units HS,
Aspart adjusted to 12 units AC
Original Note:
Today's Communication/Plan
-
see A/P
Assessment / Plan
Assessment / Plan
A/P:
# Right foot distal TMA ulcer/ superficial abrasion
CRP negative which essentially rules out active infection
MRI right lower extremity without evidence of osteo
Podiatry: no indication for surgical involvement
IV Antibiotic discontinued
Wound care on board
# DM II uncontrolled, non-complaint
A1C 14.6%
cover with ISS
Cont Lantus, further adjusted to 20 units HS
Cont Aspart. adjusted to 12 units AC
ISS Coverage
Diabetes DYE BECK REEL OPERATOR consulted for education and management
Pt was started with ACEI lisinopril for microalbuminuria, lisinopril dose adjusted to 10 mg daily
# CKD stage 3
Can check outpt BMP with result to PCP
DVT ppx: HSQ
FC
Dispo: PT recc HH
DW DM DYE BECK REEL OPERATOR
Anticipated Discharge: Today
Subjective/Interval History
-
Date of Service: July 18, 2025
Objective Data
-
Labs:
Laboratory Results
07/18/25
06:21
WBC 5.6
Hgb 11.8 L
Hct 34.6 L
Plt Count 210
Sodium 134 L
Potassium 4.6
Chloride 109 H
Carbon Dioxide 25
BUN 37 H
Creatinine 1.2 H
Glucose 164 H
Calcium 9.1
Vital Signs:
Vital Signs
Temp Pulse Resp BP Pulse Ox
36.6 C 71 17 119/81 99
07/18/25 07:15 07/18/25 08:30 07/18/25 07:15 07/18/25 08:30 07/18/25 07:15
I&O
07/17/25 07/18/25 07/19/25
06:59 06:59 06:59
Intake Total 1680 / 1680 900 / 900
Balance 1680 / 1680 900 / 900
Review of Systems
-
History Source: Patient
All other systems: Reviewed and negative
Physical Exam
-
General: Well Developed, Well Nourished, No Apparent Distress, Comfortable and Conversant; Negative Respiratory Distress
HEENT: Normocephalic, Atraumatic, Nose Appears Normal and Ears Appear Normal; Negative Oxygen
Respiratory: Clear to Auscultation and Non Labored Respirations; Negative Accessory Resp Muscle Use
Cardiac: Regular Rhythm and S1/S2
GI: Soft, Nontender, Nondistended and Normal Bowel Sounds
Skin: Warm and Dry
Neuro: Awake, Alert, Oriented and AO x 3
Psych: Calm and Intact Judgement/Insight
Data Reviewed
-
Labs: Labs Reviewed by me
--- NOTE | 2025-07-18 10:42 | W.DCSUMMARY ---
Discharge Summary
Discharge Data
Date of Admission: 07/14/25
Date of Discharge: 07/18/25
Total time spent discharging patient (in min): 40
-
Pending Results: No
Hospital Course
Principal Diagnosis:
Right foot distal TMA ulcer/ superficial abrasion , ruled out active infection
DM II uncontrolled, non-complaint
Microalbuminuria
Chronic Diagnoses:�
CKD stage 3
Consultations:�
Diabetes nurse practitioner
Pricing Specialist
Procedures:�
None
Clinical course:�
This is a 64 year old female, with past medical history as stated above, who presented with L foot superficial abrasion.
Problem 1:
Right foot distal TMA ulcer/ superficial abrasion.
Her CRP was negative which essentially ruled out active infection.
Her MRI right lower extremity was also negative for osteomyelitis.
Per sheet metal former, there is no indication for surgical involvement or antibiotic.
Problem 2:
DM II uncontrolled, non-complaint.
Her A1C was noted to be high at 14.6%.
She was started with Lantus and Aspart; and was discharged with Lantus at 18 units HS and aspart at 12 units AC.
She was also started with ACEI lisinopril for microalbuminuria and was discharged with lisinopril at 10 mg daily.
As for the rest of her medical problems, they were stable during her hospital stay.
Discharge Plan
-
Patient Disposition: Home with Home Care
Discharge Diagnosis/Procedures: Right foot distal TMA ulcer/ superficial abrasion;
Insulin dependent diabetes;
Microalbuminuria
Condition: Fair
Diet: As tolerated, Low Fat, Low Cholesterol and Diabetic, Carb Controlled
Activity: As tolerated
Driving Restrictions: As prior to admission
Wound Care: Wound Care Instructions
L lower leg: clean with soap and water, adaptic and dry dressing change q other day and prn drainage.
Right foot, Betadine to open ulcers, folded gauze and darby isabella wrap to secure, change every other day- per Dr. Witt
Control blood sugars as recommended
Follow up with Pricing Specialist as scheduled.
Referrals:
NONE,* [Family Provider, Internal Medicine] - in less than 1 week
Additional Discharge Medication Instructions: Continue Insulin:
Lantus at 18 units at night.
Aspart at 12 units with each meal
You were started with Lisinopril 10 mg, continue going forward
Prescriptions:
New
insulin aspart U-100 [Novolog FlexPen U-100 Insulin] 100 unit/mL (3 mL) Insulin Pen
12 unit SC AC Qty: 5 1RF
insulin glargine [Basaglar KwikPen U-100 Insulin] 100 unit/mL (3 mL) Insulin Pen
18 unit SC HS Qty: 5 1RF
(DME) pen needle, diabetic [Breanna Pen Needle] 32 gauge x ' Needle
Qty: 200 1RF
Rx Instructions:
1 box of 200 needles
refer to insulin instructions
(DME) Contour Next Test Strips Strip
Qty: 200 1RF
Rx Instructions:
Test glucose before each meal and HS As Directed 4 times per day
(DME) lancets [Color Lancets] 21 gauge Misc
Qty: 200 1RF
Rx Instructions:
Test glucose before each meal and HS As Directed 4 times per day
lisinopril 10 mg Tablet
10 mg PO DAILY Qty: 30 0RF
Continued
coenzyme [id number] E [Co Q-10 (with Vit E)] 1 EACH capsule
1 ea PO DAILY@1600
Emergen-C 1,000 MG powder effervescent in packet
1,000 mg PO DAILY
C,E,copper,zinc 55-[id number]-landon 1 CAP capsule
1 cap PO DAILY
Discharge Orders:
Discharge Patient (As Directed); Ordered 07/18/25
Ordered By: Jade Vilchis
Discharge Date and Time
Print Language: AMHARIC
[2025-07-18 11:17] LABS: Glucose - Point of Care 123 mg/dl (70-99)
--- NOTE | 2025-07-18 12:13 | CM ---
Addendum entered by Kelsey Blanco 07/18/25 12:25:
IMM explained & signed. In chart
Original Note:
Patient seen at bedside
Discharge today
states her sister is transporting at 6pm
PT rec home health
Patient continues adamantly to decline VN-states her sister is a nurse as well as her niece
CM spoke with Katie pharmacist at [facility] regarding insulin coverage
novolog flex pen-$70
basaglar quik pen-$105
pharmacist stated sending a message to certified lactation educator Pat as she needs ICD-10 codes for lancets, test strips, larry pen needles-tt certified lactation educator & hospitalist
patient aware of cost
CM also discussed calling residency clinic for new PCP-CM gave resource yesterday
PLAN: Home, declines VN
sister to transport
[2025-07-18 15:04] VITALS: BP 180/88
[2025-07-18 16:58] LABS: Glucose - Point of Care 127 mg/dl (70-99)
== END 2025-07-18 18:58 | disposition home or self-care (01) | DRG 639 ==
LOC: 3 WEST ACU 23:29
PROVIDERS: Registered Nurse; ADMITTING PHYSICIAN Internal Medicine; ATTENDING PHYSICIAN Internal Medicine; EMERGENCY PHYSICIAN Student in an Organized Health Care Education/Training Program; OTHER PHYSICIAN Psychiatry & Neurology Psychiatry; OTHER PHYSICIAN Student in an Organized Health Care Education/Training Program
DX: E11.621 Type 2 diabetes mellitus with foot ulcer (principal); L97.519 Non-pressure chronic ulcer of other part of right foot with unspecified severity; E11.65 Type 2 diabetes mellitus with hyperglycemia; Z86.73 Personal history of transient ischemic attack (TIA), and cerebral infarction without residual deficits; N18.32 Chronic kidney disease, stage 3b; E11.69 Type 2 diabetes mellitus with other specified complication; E11.22 Type 2 diabetes mellitus with diabetic chronic kidney disease; I12.9 Hypertensive chronic kidney disease with stage 1 through stage 4 chronic kidney disease, or unspecified chronic kidney disease; Z87.891 Personal history of nicotine dependence; Z91.040 Latex allergy status; Z79.4 Long term (current) use of insulin; Z79.01 Long term (current) use of anticoagulants; E11.319 Type 2 diabetes mellitus with unspecified diabetic retinopathy without macular edema; E86.0 Dehydration; F43.10 Post-traumatic stress disorder, unspecified; F43.21 Adjustment disorder with depressed mood; I87.2 Venous insufficiency (chronic) (peripheral); Z86.718 Personal history of other venous thrombosis and embolism; Z91.148 Patient's other noncompliance with medication regimen for other reason
CPT/HCPCS: 73630; 73720; 80048; 80053; 80202; 82010; 82962; 83036; 83605; 83735; 85025; 85027; 85652; 86140; 87040; 87070; 93922; 93925; 93971; 96365; 96367; 96372; 97167; 97530; 97535; 99285; A9575

== ENCOUNTER 2025-07-26 17:54 | Emergency (ER) | payer MEDICARE, SELFPAY ==
[2025-07-26 17:59] VITALS: BP 168/85
[2025-07-26 18:03] LABS: Glucose - Point of Care 61 mg/dl (70-99)
[2025-07-26 18:20] LABS: Hematocrit 35.5 % (37.0-47.0); Hemoglobin 11.7 g/dL (12.0-16.0); Mean Corp Hgb Conc. 33.0 g/dL (33.0-37.0); Mean Corpuscular Volume 94.4 fL (81.0-99.0); Nucleated Red Blood Cells % 0 %; Platelet Count 235 10^3/uL (130-400); Red Cell Dist. Width 13.1 % (11.5-14.5)
[2025-07-26 18:33] LABS: ALT (SGPT) 26 U/L (0-35); AST (SGOT) 27 U/L (14-36); Albumin 3.7 g/dl (3.5-5.0); Alkaline Phosphatase 54 U/L (38-126); Blood Urea Nitrogen 50 mg/dl (7-17); Calcium 8.9 mg/dl (8.4-10.2); Carbon Dioxide 27 mmol/L (22-30); Chloride 105 mmol/L (98-107); Glucose 67 mg/dl (70-99); Potassium 4.9 mmol/L (3.5-5.1); Sodium 136 mmol/L (135-145); Total Protein 6.9 g/dl (6.3-8.2); eGFR 49.92
--- NOTE | 2025-07-26 19:13 | ED.GENMED ---
History of Present Illness
General
Chief Complaint: Swelling
Time Seen by Provider: 07/26/25 19:13
History of Present Illness
History of Present Illness:
FOCUSED PAST MEDICAL HISTORY
- Diabetic neuropathy, orthostatic hypotension, IDDM
REVIEW OF OLD RECORDS
- I reviewed records, the patient was admitted here from 07/14 through 07/18/2025 with right foot distal TMA ulcer with uncontrolled diabetes and noncompliance
- Recent A1c 14.6%
- Echo in 2010 showed EF 60% with normal LV and RV function
- Negative DVT ultrasound 07/14/2025 and 07/17/2025 arterial ultrasound showed mild arterial disease
- Recent MRI showed no osteomyelitis
Note:
CHIEF COMPLAINT(S)
- Swelling of the legs
HISTORY OF PRESENT ILLNESS
The patient is a 64-year-old female who presents with significant swelling of the legs, described as 'really, really, really swelling' and 'tight.' The patient was recently discharged from the hospital last Thursday and states that the swelling has
worsened since then, feeling more swollen than usual today. The patient denies any shortness of breath or difficulty breathing. The patient has not been diagnosed with congestive heart failure and has never been on diuretics. The swelling is noted
to be bilateral. The patient has a history of transmetatarsal amputations, with the left foot in 2015 and the right foot culminating around [id number]. She recently attended the emergency department due to a wound on her foot, thought to be infected,
but no osteomyelitis was found. While admitted last week, the patient received intravenous fluids and antibiotics; her weight at discharge was 193.8 lbs, while tonight it is reported as approximately 208 lbs. The patient mentions they performed a
blood test for heart failure, revealing a concerning result of 1000. The patient experienced chest pain intermittently but describes it as uncertain, sometimes needing a pillow, and it is associated with a strange sensation in the shoulders. She
denies being on blood thinners currently but received heparin during the recent hospitalization. Recently, the patient experienced low blood sugar, necessitating juice administration for correction.
ADDITIONAL HISTORY OBTAINED FROM SOURCES OTHER THAN THE PATIENT
Per the sister accompanying the patient, the patients brother from a pulmonary embolism at age 45, with existing health issues.
EXTERNAL RECORDS REVIEWED
The patient reports a recent ultrasound was done on both legs before hospital discharge, but results were not communicated due to high discharge volumes on the day of her release. The patient suggests an EKG was not performed during tonights visit
but was prompted and requested by the current ER evaluation.
CHRONIC MEDICAL CONDITIONS SIGNIFICANTLY AFFECTING CARE
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
PHYSICAL EXAM
General: Alert, no acute distress.
Skin: Warm, dry.
Head: Normocephalic, atraumatic.
Neck: Supple, trachea midline.
Eye, Ears, Nose, Mouth, and Throat: Oral mucosa moist.
Cardiovascular: Normal peripheral perfusion, no edema.
Respiratory: Crackles noted on auscultation, respirations noted as non-labored during conversation. Normal respiratory rate. Room air sats 96 to 98%
Gastrointestinal: Abdomen nondistended.
Back: Normal range of motion, normal alignment.
Musculoskeletal: 2+ bilateral lower extremity edema, there is been transmetatarsal amputation bilaterally with no clear evidence for cellulitis
Neurological: Alert and oriented to person, place, time, and situation, no focal neurological deficit observed.
Psychiatric: Cooperative, appropriate mood & affect.
PLAN
- Conduct a chest x-ray to assess for cardiopulmonary issues.
- Perform an EKG to investigate the reported chest pain.
- Re-evaluate blood glucose levels due to recent hypoglycemia.
- Consider diuretic therapy, such as Lasix, for a few days if persistent leg swelling points towards fluid retention.
- Follow up on past ultrasound results and previous imaging studies.
DIFFERENTIAL DIAGNOSIS
The Differential Diagnosis includes, in no particular order and is not limited to:
1. Congestive heart failure
2. Deep vein thrombosis
3. Cellulitis
4. Lymphedema
5. Chronic venous insufficiency
6. Pulmonary embolism
7. Peripheral edema secondary to hypoalbuminemia
8. Medication-induced edema
9. Lipedema
10. Renal insufficiency leading to fluid retention
RADIOLOGY
- Ultrasound negative for DVT bilaterally
- Chest x-ray shows bilateral pulmonary edema
EKG
- Sinus 94, leftward axis deviation, nonspecific ST abnormality, no significant change in comparison to 11/23/2017, artifact noted in V4
LABS
- White count 6.9, hemoglobin 11.7, glucose 67, creatinine 1.2, BNP 1010
UPDATE
-SUMMARY OF ENCOUNTER
The patient, a 64-year-old female, presented to the emergency department with significant bilateral leg swelling, described as 'really, really, really swelling' and 'tight.' During the visit, an EKG and chest x-ray were conducted. The EKG was
normal, and the chest x-ray showed potential fluid buildup. The patient denied severe shortness of breath but reported intermittent chest discomfort. She has a history that includes a blood test suggesting high risk for heart failure, but no
diagnosis of congestive heart failure has been formally established. The patient was counseled on the possibility of fluid retention contributing to her symptoms and on the importance of follow-up care.
DISPOSITION
Discharge.
ASSESSMENT
The patient likely has fluid retention contributing to her bilateral leg swelling, possibly due to heart failure, which requires further outpatient cardiology evaluation.
PLAN
- Discharge the patient with a prescription for furosemide (Lasix) to manage fluid retention.
- Recommend follow-up with a vc++ developer for further evaluation and management of potential cardiac issues.
- Encourage continued follow-up with primary care.
INDEPENDENT REVIEW OF LABS AND INTERPRETATION OF TESTS
- My independent review of the EKG is normal.
- My independent interpretation of the chest x-ray shows potential fluid retention.
PATIENT EDUCATION AND COUNSELING
The patient was informed about the potential fluid retention and the importance of cardiology follow-up. She was made aware that taking furosemide in the evening might result in nocturia.
FOLLOW-UP INSTRUCTIONS
The patient was advised to follow up with a vc++ developer for further evaluation. She was also encouraged to maintain her upcoming primary care appointment.
MEDICATION RECONCILIATION
- Prescribed furosemide (Lasix) [Check RxNorm for specific dosing] to address fluid retention.
MEDICAL DECISION MAKING
-Number and Complexity of Problems Addressed: Chronic conditions affecting care include a history of potential significant heart issues, bilateral leg swelling possibly due to fluid retention, and a history of transmetatarsal amputations.
Differential diagnosis includes heart failure, deep vein thrombosis, pulmonary embolism, and medication-induced edema.
-Data:
Category 1:
- My independent review of non-emergency department records includes the patients mention of a concerning blood test for heart failure.
Category 2:
- Clinical information was obtained from an independent historian, the patients sister, who provided insight into family history and recent health issues.
-Risk: Consideration of Admission/Observation: Escalation of care including admission/observation was considered given the complexity and risk of the patients presenting complaint and underlying comorbidities. However, ultimately I feel the patient
is safe for outpatient management with close follow-up. Reasoning: Work-up reassuring, does not reveal any acute life/organ threatening processes, patients symptoms well controlled upon reevaluation, reexamination is reassuring, vitals are stable,
patient agreeable with discharge, reliable for follow-up.
DIAGNOSIS
- Unspecified edema (ICD-10: R60.9)
- Potential Congestive Heart Failure (ICD-10: I50.9) (consider follow-up for official diagnosis).
Mild edema on exam with some faint rales but room air sats are normal. Chest x-ray does show some degree of increased vascular congestion/pulmonary edema. Considered admission however room air sats are 98% and she feels comfortable with going
home. She is just in the hospital. I notified Dr. Reynaga and agrees with close outpatient follow-up. Will start Lasix over the next few days. No DVT by ultrasound.
Past History
Past History
ED Past Medical History: CVA, HTN, IDDM (hasn't taken insulin during the past 2-3 weeks), Other (s/p amputation of toes on left foot) and Other (orthostatic hypotension, diabetic retinopathy, Syncope, Osteomuyelitis R foot,)
ED Past Surgical History: Cholecystectomy and Orthopedic (left toe's amp)
Social History
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
Alcohol: None
Drug: None
Personal: Single
Living: alone
Employment: Not employed
Family History
Family History: Diabetes and CAD
Phy Exam
Physical Exam
Physical Exam:
See HPI
Scores
Heart Failure Risk
Heart Failure Risk Score: Not Applicable
Course
Orders/Labs/Results
Orders:
Orders
07/26/25 18:07
Complete Blood Count/With Diff Urgent
Comprehensive Metabolic Panel Urgent
NT-proBNP Urgent
07/26/25 19:23
Bedside Glucose- Treatment ONCE
Furosemide [Lasix] 20 mg PO NOW STA
CR Chest - 2 Views Urgent
Comment:
Reason For Exam: rales, weight gain
07/26/25 19:24
US Legs, Bilateral [US Periph Venous LOWER Ext Norm] Urgent
Comment:
Reason For Exam: worsening LE edema past week; prior DVT/PE not on
07/26/25 19:27
Electrocardiogram (*1) Urgent
Reason for Study: Chest Pain
07/26/25 19:28
EKG- Treatment ONCE
Abnormal Lab Results
07/26/25 07/26/25 07/26/25
18:02 18:07 21:20
RBC 3.76 L 10^6/uL
(4.20-5.40)
Hgb 11.7 L g/dL
(12.0-16.0)
Hct 35.5 L %
(37.0-47.0)
MCH 31.1 H pg
(27.0-31.0)
BUN 50 H mg/dl
(7-17)
Creatinine 1.2 H mg/dL
(0.6-1.0)
Glucose 67 L mg/dl
(70-99)
POC Glucose 61 L mg/dl 148 H mg/dl
(70-99) (70-99)
07/26/25 18:07
07/26/25 18:07
Vital Signs
Initial and Last Documented VS:
Initial Vital Signs
Temp Pulse Resp BP Pulse Ox
36.6 C 89 18 168/85 98
07/26/25 17:59 07/26/25 17:59 07/26/25 17:59 07/26/25 17:59 07/26/25 17:59
Last Documented Vital Signs
Temp Pulse Resp BP Pulse Ox
36.6 C 94 30 156/51 96
07/26/25 17:59 07/26/25 21:49 07/26/25 19:15 07/26/25 21:21 07/26/25 19:15
*Pulse Oximetry
SaO2: 96
Oxygen Mode of Delivery: Room air
Patient hypoxic: no
*Critical Care Note
Total Time (30-74mins, 75-104mins- exclusive of procedures): Not Applicable
ED Attending Note
-
Portions of this chart may have been created with voice recognition software.� Occasional wrong word or��sound alike� substitutions may have occurred due to the inherent limitations of voice recognition software.
Discharge Plan
Departure
Patient Disposition: Home (Routine Discharge)
Date of Disposition: 07/26/25
Time of Disposition: 21:48
Patient with high blood pressure during this ER visit?: Yes
Discharge Problem:
Bilateral lower extremity edema
Instructions: Dependent Edema (DC), BLOOD PRESSURE
Prescriptions:
New
furosemide [Lasix] 20 mg tablet
20 mg PO DAILY Qty: 5 0RF
No Action
Emergen-C 1,000 MG powder effervescent in packet
1,000 mg PO DAILY
PreserVision AREDS 2,148 mcg-113 mg-45 mg-17.4mg Tablet
1 tab PO DAILY
coQ10 (ubiquinol) 100 mg Capsule
100 mg PO DAILY
lisinopril 10 mg tablet
10 mg PO DAILY
insulin aspart U-100 [Novolog FlexPen U-100 Insulin] 100 unit/mL (3 mL) insulin pen
12 unit SC AC
insulin glargine [Basaglar KwikPen U-100 Insulin] 100 unit/mL (3 mL) insulin pen
18 unit SC HS
Referrals:
Devan Reynaga MD [Active, Cardiology]
NONE,* [Family Provider, Internal Medicine]
Activity Restrictions/Additional Instructions:
Your BNP level is somewhat elevated (1010) that could be a sign of congestive heart failure. Your ultrasound shows no sign of blood clot. EKG shows no sign of heart attack. I sent a prescription for Lasix to your pharmacy for a few more days. I
notify Dr. Galaviz his office for follow-up. Return if worse or other concerns.
Interventions
Interventions:
*Risk Screen - Suicide Last Done: 07/26/25 18:00
*General Assessment Last Done: 07/26/25 18:00
*Neglect/Abuse Screening Last Done: 07/26/25 18:00
*ED- Fall Risk Assessment Last Done: 07/26/25 22:07
*ED COVID-19 Vaccine History Last Done: 07/26/25 18:00
*ED Influenza Vaccine History Last Done: 07/26/25 18:00
*Nursing Disposition Last Done: 07/26/25 22:07
ED- Cardiac Assessment Last Done: 07/26/25 18:41
ED- Pulmonary Assessment Last Done: 07/26/25 18:41
ED-Skin Assessment Last Done: 07/26/25 18:41
Discharge Date and Time
Discharge Date/Time: 07/26/25 22:08
Print Language: ROMANIAN
[2025-07-26] MEDS: LASIX 20 MG PO (19:30)
[2025-07-26 19:31] VITALS: BP 176/73
[2025-07-26 21:21] VITALS: BP 156/51
[2025-07-26 21:21] LABS: Glucose - Point of Care 148 mg/dl (70-99)
== END 2025-07-26 22:08 | disposition home or self-care (01) ==
LOC: EMR 17:54
PROVIDERS: Emergency Medicine; EMERGENCY PHYSICIAN Emergency Medicine
DX: R60.0 Localized edema (principal); E11.40 Type 2 diabetes mellitus with diabetic neuropathy, unspecified; E11.649 Type 2 diabetes mellitus with hypoglycemia without coma; Z79.4 Long term (current) use of insulin; Z86.718 Personal history of other venous thrombosis and embolism; Z86.73 Personal history of transient ischemic attack (TIA), and cerebral infarction without residual deficits; Z91.199 Patient's noncompliance with other medical treatment and regimen due to unspecified reason; Z90.49 Acquired absence of other specified parts of digestive tract; Z89.422 Acquired absence of other left toe(s); Z77.22 Contact with and (suspected) exposure to environmental tobacco smoke (acute) (chronic)
CPT/HCPCS: 99285; 71046; 80053; 82962; 83880; 85025; 93005; 93970

== ENCOUNTER → 2025-08-09 10:36 | Outpatient (REF) | payer MEDICARE, SELFPAY ==
[2025-08-09 12:20] LABS: Hematocrit 35.8 % (37.0-47.0); Hemoglobin 11.7 g/dL (12.0-16.0); Mean Corp Hgb Conc. 32.7 g/dL (33.0-37.0); Mean Corpuscular Volume 97.5 fL (81.0-99.0); Nucleated Red Blood Cells % 0 %; Platelet Count 250 10^3/uL (130-400); Red Cell Dist. Width 13.0 % (11.5-14.5)
[2025-08-09 13:28] LABS: ALT (SGPT) 26 U/L (0-35); AST (SGOT) 29 U/L (14-36); Albumin 4.0 g/dl (3.5-5.0); Alkaline Phosphatase 74 U/L (38-126); Blood Urea Nitrogen 54 mg/dl (7-17); Calcium 9.6 mg/dl (8.4-10.2); Carbon Dioxide 29 mmol/L (22-30); Chloride 103 mmol/L (98-107); Glucose 78 mg/dl (70-99); HDL Cholesterol 62 mg/dl; LDL Cholesterol, Calculated 104 mg/dl; Potassium 5.5 mmol/L (3.5-5.1); Sodium 135 mmol/L (135-145); Total Protein 7.3 g/dl (6.3-8.2); Very Low Density Lipoprotein 12 mg/dl (0-30); eGFR 45.35
== END ==
LOC: REG 10:36
DX: R60.0 Localized edema (principal); I10 Essential (primary) hypertension; R06.02 Shortness of breath; S91.301A Unspecified open wound, right foot, initial encounter; E11.65 Type 2 diabetes mellitus with hyperglycemia
CPT/HCPCS: 36415; 80053; 80061; 85025

== ENCOUNTER → 2025-08-18 14:51 | Outpatient (REF) | payer MEDICARE, SELFPAY | LOC: RCS 14:51 | DX: R06.2 Wheezing (principal) | CPT/HCPCS: 93306 ==

== ENCOUNTER → 2025-08-28 10:43 | Outpatient (REF) | payer MEDICARE, SELFPAY ==
[2025-08-28 12:05] LABS: Blood Urea Nitrogen 36 mg/dl (7-17); Calcium 9.1 mg/dl (8.4-10.2); Carbon Dioxide 26 mmol/L (22-30); Chloride 107 mmol/L (98-107); Glucose 98 mg/dl (70-99); Potassium 4.8 mmol/L (3.5-5.1); Sodium 136 mmol/L (135-145); eGFR 41.49
== END ==
LOC: REG 10:43
PROVIDERS: ATTENDING PHYSICIAN Internal Medicine Cardiovascular Disease
DX: R60.0 Localized edema (principal)
CPT/HCPCS: 36415; 80048; 83880